=== PATIENT | male | born 1950 | race Two or more races ===

== ENCOUNTER 2022-10-13 07:21 | Outpatient (CLI) | payer OTHER | END 2022-10-13 07:28 | disposition home or self-care (01) | LOC: RX STUDY 07:21 | PROVIDERS: ATTEND Colon & Rectal Surgery | DX: C20 Malignant neoplasm of rectum (principal) ==

== ENCOUNTER 2022-12-09 06:30 | Day surgery (SDC) | payer OTHER | END 2022-12-09 09:45 | disposition home or self-care (01) | LOC: AMB-ENDOS 06:30 | PROVIDERS: ATTEND Colon & Rectal Surgery | DX: C20 Malignant neoplasm of rectum (principal); K92.2 Gastrointestinal hemorrhage, unspecified; Z20.822 Contact with and (suspected) exposure to COVID-19; K62.4 Stenosis of anus and rectum ==

== ENCOUNTER 2023-01-11 09:06 | Inpatient (IN) | payer OTHER ==
[~2023-01-11] VITALS: Ht 172.7 cm; Wt 81.6 kg
[2023-01-20 17:59] LABS: HEMATOCRIT 43.6 % (39.0-48.0); HEMOGLOBIN 15.1 g/dL (13-16.00); MEAN CELL VOLUME 101.5 fL (80.0-100.00); MEAN CORPUSCULAR HEMOGLOBIN 35.2 pg (27.00-32.0); MEAN CORPUSCULAR HGB CONC 34.7 g/dl (32.0-36.0); RED BLOOD COUNT 4.29 M/uL (4.00-6.00); RED CELL DISTRIBUTION WIDTH 14.5 % (11.5-14.5)
[2023-01-20 18:04] LABS: PLATELET COUNT 127 K/uL (150-450)
[2023-01-21] MEDS ORDERED: GABAPENTIN600 MG (06:07)
[2023-01-21 06:19] LABS: HEMATOCRIT 39.2 % (39.0-48.0); HEMOGLOBIN 13.8 g/dL (13-16.00); MEAN CELL VOLUME 99.8 fL (80.0-100.00); MEAN CORPUSCULAR HEMOGLOBIN 35.2 pg (27.00-32.0); MEAN CORPUSCULAR HGB CONC 35.3 g/dl (32.0-36.0); PLATELET COUNT 134 K/uL (150-450); RED BLOOD COUNT 3.93 M/uL (4.00-6.00); RED CELL DISTRIBUTION WIDTH 14.6 % (11.5-14.5)
[2023-01-21 07:02] LABS: ALBUMIN 3.2 gm/dL (3.4-5.0); CALCIUM 8.7 mg/dL (8.5-10.1); CREATININE SERUM 0.8 mg/dL (0.70-1.30); GFR 95.29; MAGNESIUM 1.7 mg/dL (1.8-2.4); POTASSIUM 3.95 mEq/L (3.5-5.1)
== END 2023-01-22 13:39 | disposition home or self-care (01) | DRG 348 ==
LOC: SURH 01-20 07:28 → O/R 01-20 07:28 → SURG-SUITE 01-20 10:45 → SURH 01-20 18:24
PROVIDERS: ADMIT Colon & Rectal Surgery; ATTEND Colon & Rectal Surgery
PROC: 0DBB4ZZ Excision of Ileum, Percutaneous Endoscopic Approach (ICD-10-PCS; principal; 2023-01-20 14:15)
DX: Z43.2 Encounter for attention to ileostomy (principal); C20 Malignant neoplasm of rectum; K92.2 Gastrointestinal hemorrhage, unspecified; K66.0 Peritoneal adhesions (postprocedural) (postinfection)